=== PATIENT | male | born 1985 | race Caucasian/White ===

== ENCOUNTER 2020-11-12 02:10 | Emergency (ER) | payer BC ==
[2020-11-12] MEDS ORDERED: Proparacaine 0.5% Opth 15 ML BOT ONE (02:28)
[2020-11-12] MEDS ORDERED: Fluorescein Opthalmic Strip ONE (02:28)
== END 2020-11-12 02:52 | disposition home or self-care (01) ==
LOC: MADERS 02:10
DX: H10.9 Unspecified conjunctivitis (principal); F17.290 Nicotine dependence, other tobacco product, uncomplicated
CPT/HCPCS: 99283